=== PATIENT | female | born 1950 | race Caucasian/White ===

== ENCOUNTER → 2016-08-21 | Outpatient (CLI) | payer OTHER ==
[2015-11-20 10:00] VITALS: BP 126/62
[~2016-08-21] MED LIST: CALC667C6 PO; CELE200C PO; CIPR250T30 PO; DICL100T PO; DICL75TA PO; DILT180C2 PO; DOCU-109 PO; ESOM20CA PO; HYDR-2679 PO; LISI1TAB3 PO; MECL12.52 PO; MELA3TAB2 PO; METO25TA9 PO; SIMV20TA3 PO; tylenol arthritis PO
--- NOTE | 2016-08-21 13:38 | KCIC ---
Bilateral digital screening mammograms: Reason for examination: Routine screening. Comparison is made to previous studies dated 08/03/2015 and 07/21/2014. Interpretation was made with the benefit of CAD. The skin and nipples show no abnormalities. No abnormal axillary lymph nodes are seen. The breast parenchyma shows scattered fibroglandular density. (Breast density: Category B.) There are no dominant masses, suspicious calcifications or architectural distortions. Impression: No evidence of malignancy. Recommend routine screening. BI-RADS Category 1: Negative. "Our facility is accredited by the [employer] Mammography [employer]." This patient's information has been entered into a reminder system for the patient to be notified with the results of her examination and a target date for the next mammogram. Electronically signed by: Silvia Bonilla MD (08/21/2016 1:35 PM)
== END | disposition home or self-care (01) ==
LOC: KCIC MAMMO 08:25
PROVIDERS: ATTEND Family Medicine
DX: Z12.31 Encounter for screening mammogram for malignant neoplasm of breast (principal)
CPT/HCPCS: G0202; 77067

== ENCOUNTER → 2017-08-26 | Outpatient (CLI) | payer OTHER | END | disposition home or self-care (01) | LOC: KCIC MAMMO 17:41 | DX: Z12.31 Encounter for screening mammogram for malignant neoplasm of breast (principal) | CPT/HCPCS: 77067 ==

== ENCOUNTER → 2018-08-29 | Outpatient (CLI) | payer MEDICARE, OTHER ==
[2015-11-20 10:00] VITALS: BP 126/62
[~2018-08-29] MED LIST changes: +METO-239 PO; -METO25TA9 PO
--- NOTE | 2018-08-29 12:25 | KCIC ---
Bilateral digital screening mammograms with 3-D tomosynthesis: Reason for examination: Routine screening. Comparison is made to previous studies dated 08/26/2017 and 08/21/2016. Bilateral mammograms in CC and oblique projections were obtained with 2-D imaging and 3-D tomosynthesis imaging on a Siemens Inspiration unit and reviewed on the workstation. Interpretation was made with the benefit of CAD. The skin and nipples show no abnormalities. No abnormal axillary lymph nodes are seen. The breast parenchyma shows scattered fatty and fibroglandular density. (Breast density: Category B.) There are no dominant masses, suspicious calcifications or architectural distortion. Impression: No evidence of malignancy. Recommend routine screening. BI-RAD Category 1: Negative. "Our facility is accredited by the [employer] Mammography [employer]." This patient's information has been entered into a reminder system for the patient to be notified with the results of her examination and a target date for the next mammogram. Electronically signed by: Silvia Bonilla MD (08/29/2018 12:23 PM) [id number]
--- NOTE | 2018-08-29 15:27 | KCIC ---
Bone densitometry 08/29/2018 8:30 AM Indication: Surgical menopause Comparison Study: Bone densitometry July 24, 2012. Discussion: Bone Densitometry was performed with dual photon absorption of the lumbar spine and left proximal femur. Lumbar Spine: Bone average density is 0.951g/cm2 for L1-L4. T-Score is -0.9. Left femoral neck: Bone average density is 0.883g/cm2. T-Score is -0.5. IMPRESSION: Normal bone mineral density, similar to prior study. Note: Definitions established by the World Health Organization: Normal: T-score is -1.0 or above. Osteopenia: T-score is between -1.0 and -2.5. Osteoporosis: T-score is -2.5 or below. Electronically signed by: Shola Olson MD (08/29/2018 3:24 PM) [id number]
== END | disposition home or self-care (01) ==
LOC: KCIC DEXA 08:28
PROVIDERS: ATTEND Nurse Practitioner Family
DX: Z12.31 Encounter for screening mammogram for malignant neoplasm of breast (principal); Z78.0 Asymptomatic menopausal state
CPT/HCPCS: 77063; 77067; 77080

== ENCOUNTER → 2018-12-29 | Outpatient (CLI) | payer MEDICARE ==
[2015-11-20 10:00] VITALS: BP 126/62
[~2018-12-29] MED LIST changes: +LISI1TAB23 PO; -LISI1TAB3 PO; -MELA3TAB2 PO; +MELA3TAB56 PO; +SIMV20TA18 PO; -SIMV20TA3 PO
--- NOTE | 2018-12-30 09:50 | KCIC ---
LUMBAR SPINE 2-3V History: Lumbar pain. Technique: 3 views lumbar spine. Comparison: MRI March 10, 2015 Findings: Minimal retrolisthesis L1 on L2 and L2 on L3, unchanged. Mild multilevel degenerative disc changes. Moderate lower lumbar facet arthropathy. Normal vertebral body height. No fracture. Impression: 1. Multilevel lumbar spondylosis. Electronically signed by: Man Esparza DO (12/30/2018 9:47 AM) [facility]
== END | disposition home or self-care (01) ==
LOC: KCIC 09:34
PROVIDERS: ATTEND Nurse Practitioner Family
DX: M47.816 Spondylosis without myelopathy or radiculopathy, lumbar region (principal); M46.86 Other specified inflammatory spondylopathies, lumbar region
CPT/HCPCS: 72100

== ENCOUNTER → 2019-01-05 | Outpatient (CLI) | payer MEDICARE ==
[2015-11-20 10:00] VITALS: BP 126/62
--- NOTE | 2019-01-05 09:43 | KCIC ---
MRI of the lumbar spine without contrast 01/05/2019 CLINICAL HISTORY: Low back pain for last 2-3 months which radiates down both legs. TECHNIQUE: Unenhanced T1-weighted and T2-weighted sagittal and axial recovery sagittal images of the lumbar spine were obtained. FINDINGS: Comparison is made to radiographs of the lumbar spine dated 12/29/2018. Additional comparison is made to an MRI of the lumbar spine dated 03/10/2015. Very mild S-shaped curvature of the thoracolumbar spine is seen. Degenerative signal changes are seen involving all the disks of the lumbar spine. Degenerative signal changes are seen within the marrow surrounding these discs. Loss of height of the L1-2 disc is noted. A 1.5 cm hemangioma is seen involving the L4 vertebral body. The conus medullaris is within normal limits in morphology, position, and signal characteristics. On the axial images throughout the lumbar disc spaces, the changes of degenerative disc disease are seen. These consist of mild to moderate generalized disc bulges, degenerative changes involving the facet joints and mild to moderate ligamentum flavum hypertrophy. Small facet joint effusions are seen throughout. A 4 mm synovial cyst is seen projecting anteriorly and laterally from the left facet joint at L5-S1. These findings when combined do not result in significant central spinal canal or neural foraminal stenosis at any level. Since the previous MRI examination there has been no significant interval change. IMPRESSION: The changes of degenerative disc disease are seen throughout the lumbar spine. These findings do not result in significant central spinal canal or neural foraminal stenosis at any level. Electronically signed by: Amor Grant MD (01/05/2019 9:40 AM) [id number]
== END ==
LOC: KCIC MRI 08:34
PROVIDERS: ATTEND Nurse Practitioner Family
DX: M47.26 Other spondylosis with radiculopathy, lumbar region (principal); M51.16 Intervertebral disc disorders with radiculopathy, lumbar region; M71.38 Other bursal cyst, other site; M43.8X5 Other specified deforming dorsopathies, thoracolumbar region; M48.061 Spinal stenosis, lumbar region without neurogenic claudication
CPT/HCPCS: 72148

== ENCOUNTER → 2019-09-14 | Outpatient (CLI) | payer MEDICARE ==
[2015-11-20 10:00] VITALS: BP 126/62
[~2019-09-14] MED LIST changes: -MECL12.52 PO; +MECL12.573 PO; +MELA3TAB4 PO; -MELA3TAB56 PO
--- NOTE | 2019-09-14 12:25 | KCIC ---
Bilateral digital screening mammograms and tomosynthesis Reason for examination: Routine screening. History of benign left breast biopsy. Comparison is made to previous study dated August 29, 2018 and priors Routine CC and MLO digital views obtained. Interpretation was made with the benefit of CAD. The skin and nipples show no abnormalities. No abnormal lymph nodes are seen. The breast parenchyma is scattered fibroglandular elements. (Breast density: Category B.) There are no suspicious masses, suspicious calcifications or architectural distortions. Small foci of nodularity of the glandular tissue is stable bilaterally which in the outer breast are likely intramammary lymph nodes Impression: Negative mammogram. Recommend routine screening. BI-RADS Category 2: Benign. "Our facility is accredited by the [employer] Mammography [employer]." This patient's information has been entered into a reminder system for the patient to be notified with the results of her examination and a target date for the next mammogram. Electronically signed by: Jarrod Freitas MD (09/14/2019 12:22 PM) [email or web address]
== END | disposition home or self-care (01) ==
LOC: KCIC MAMMO 07:46
PROVIDERS: ATTEND Nurse Practitioner Family
DX: Z12.31 Encounter for screening mammogram for malignant neoplasm of breast (principal); N64.89 Other specified disorders of breast
CPT/HCPCS: 77063; 77067

== ENCOUNTER → 2020-10-19 | Outpatient (CLI) | payer MEDICARE ==
[2015-11-20 10:00] VITALS: BP 126/62
[~2020-10-19] MED LIST changes: -MECL12.573 PO; +MECL12.582 PO
--- NOTE | 2020-10-19 16:43 | KCIC ---
Bilateral digital screening mammograms and tomosynthesis Reason for examination: Routine screening. History of benign left breast biopsy. Comparison is made to previous study dated 09/14/2019 and priors Routine CC and MLO digital views obtained. Interpretation was made with the benefit of CAD. The skin and nipples show no abnormalities. No abnormal lymph nodes are seen. The breast parenchyma i s scattered fibroglandular elements. (Breast density: Category B.) There are no suspicious masses, eisebnerg spicious calcifications or architectural distortions. Impression: Negative mammogram. Recommend routine screening. BI-RADS Category 2: Benign. "Our facility is accredited by the [employer] Mammography [employer]." This patient's information has been entered into a reminder system for the patient to be notified wit h the results of her examination and a target date for the next mammogram. Electronically signed by: Eulogio Zhao DO (10/19/2020 4:41 PM) [email or web address]
== END ==
LOC: KCIC MAMMO 07:50
PROVIDERS: ATTEND Nurse Practitioner Family
DX: Z12.31 Encounter for screening mammogram for malignant neoplasm of breast (principal)
CPT/HCPCS: 77063; 77067